=== PATIENT | female | born 1975 | race Caucasian/White ===

== ENCOUNTER → 2017-12-21 | Outpatient (CLI) | payer OTHER | LOC: CIMAGING 12:48 | PROVIDERS: ATTEND Physician Assistant Medical | DX: N60.11 Diffuse cystic mastopathy of right breast (principal) | CPT/HCPCS: 76641-PO ==

== ENCOUNTER 2018-04-17 08:04 | Emergency (ER) | payer OTHER ==
[2018-04-17] MEDS ORDERED: ACETAMINOPHEN 500 MG TAB PO ONE (08:23)
--- NOTE | 2018-04-17 08:38 | EDPHY ---
H & P Time Seen by Provider: 04/17/18 08:10 HPI/ROS: CHIEF COMPLAINT: Fever, sore throat, body aches HISTORY OF PRESENT ILLNESS: This is a 42-year-old female presents emergency department reporting 3 days of a sore throat, body aches, and fever. Occasional cough. No chest pain, shortness of breath, nausea, or vomiting. Patient reports that she has a history of rheumatic heart disease and is always concerned regarding upper respiratory infections. Temperature max was 102. No influenza vaccination yet this year. [id number] son at home is sick with similar symptoms. No chest pain, shortness of breath, palpitations, vomiting, diarrhea, urinary complaints, headache. REVIEW OF SYSTEMS: A comprehensive 10 system review of systems was reviewed and is otherwise negative aside from elements mentioned in the history of present illness. PAST MEDICAL HISTORY: Hypothyroid, rheumatic heart disease. LMP 2 weeks ago. SOCIAL HISTORY: . VITAL SIGNS: see nurse's notes. GENERAL: Well-developed, well-nourished, in no acute distress. HEENT: Atraumatic Eyes: PERRL, EOMI, no conjunctival injection. Ears: TM clear bilaterally. Nose: No discharge. Mouth: moist mucous membranes. Pharynx: Erythematous, enlarged tonsils with exudates bilaterally. No abscess. Uvula is midline. NECK: Supple, shotty adenopathy, no meningismus, no tenderness. Negative Kernig 's and Brudzinski's. LUNGS: Clear to auscultation bilaterally, no wheezes, rhonchi or rales. CARDIAC: Regular rate and rhythm, no rubs, murmurs or gallops. ABDOMEN: Soft, nontender, bowel sounds normal. BACK: No CVA tenderness. EXTREMITIES: Normal, no edema, FROM. NEURO: Alert and oriented, grossly nonfocal. SKIN: Warm and dry, no rash. PSYCHIATRIC: Normal mentation, no agitation. Smoking Status: Former smoker Constitutional: Initial Vital Signs Temperature (C) 37.7 C 04/17/18 08:07 Heart Rate 99 04/17/18 08:07 Respiratory Rate 16 04/17/18 08:07 Blood Pressure 95/60 L 04/17/18 08:07 O2 Sat (%) 93 04/17/18 08:07 O2 Delivery Mode Room Air Allergies/Adverse Reactions: No Known Allergies Allergy (Verified 04/17/18 08:08) Home Medications: Medication Instructions Recorded Amoxicillin Trihydrate [Amoxil] 500 mg PO TID 7 Days cap 04/17/18 Synthroid 04/17/18 Medical Decision Making ED Course/Re-evaluation: Initial blood pressure was slightly low. Repeat blood pressure is 102 systolic. Patient had taken ibuprofen prior to presentation. 1 g of Tylenol was added. Strep screen is positive. Patient is placed on amoxicillin. Please see the discharge instructions regarding symptomatic care. Differential Diagnosis: Differential diagnosis for the patient's sore throat was considered including but not limited to viral pharyngitis, bacterial pharyngitis, tonsillitis, tonsillar abscess, peritonsillar abscess, foreign body, epiglottitis, bacterial tracheitis. - Data Points Medications Given: Discontinued Medications Acetaminophen (Tylenol) 1,000 mg PO EDNOW ONE Stop: 04/17/18 08:24 Last Admin: 04/17/18 08:28 Dose: 1,000 mg Point of Care Test Results: Strep Strep Throat Swab Collection 04/17/18 Date Strep Throat Swab Swab 08: Collection Time Strep Result Detected Departure - Departure Disposition: Home, Routine, Self-Care Clinical Impression: Strep pharyngitis Condition: Good Instructions: Strep Throat (ED), Tonsillitis (ED) Additional Instructions: Your rapid strep screen is positive. Please take antibiotics as directed. Amoxicillin 500 mg by mouth 3 times a day for the next 7 days. For your sore throat, I suggest ibuprofen 400-600 mg every 6-8 hours to help with pain and swelling. Salt water gargles and throat lozengers will also be helpful. Please drink plenty of fluids and get plenty of rest. This will help with her body aches. Please follow up with your primary care physician if you're not improving as expected. Referrals: Patient,NotPresent [Primary Care Provider] - As per Instructions Prescriptions: Amoxicillin Trihydrate [Amoxil] 500 mg PO TID 7 Days cap
[2018-04-17 08:53] VITALS: BP 99/62
== END 2018-04-17 08:52 | disposition home or self-care (01) ==
LOC: CED 08:04
DX: J02.0 Streptococcal pharyngitis (principal); I09.9 Rheumatic heart disease, unspecified; E03.9 Hypothyroidism, unspecified